=== PATIENT | female | born 1990 | race Hispanic/Latino ===

== ENCOUNTER 2018-02-23 11:02 | Emergency (ER) | payer BC ==
[2018-02-23 11:05] VITALS: BP 124/86; PULSE 93; RESP 17; TEMP 98.9; O2SAT 98; BMI 22.2
[2018-02-23] MEDS ORDERED: Sodium Chloride 0.9% 1,000 ML IV STA (11:19)
--- NOTE | 2018-02-23 11:24 | ED PDOC ---
HPI: Seizure Time Seen by Provider: 02/23/18 11:08 Chief Complaint (Nursing): Seizure Chief Complaint (Provider): Seizure Additional Complaint(s): Pt presents with friend who witnessed seizure 2 hours [employer] SUPERVIS[employer]. Friend states she was standing when seizure started, head hit furniture on way down. Pt states she took extra dose of Keppra because she felt different today. Admits to drinking excessive alcohol last PM, last seizure [facility] secondary to alcohol use. Past Medical History Reviewed: Nursing Documentation, Vital Signs Vital Signs: Last Vital Signs Temp 98.9 F 02/23/18 11:05 Pulse 93 H 02/23/18 11:05 Resp 17 02/23/18 11:05 BP 124/86 02/23/18 11:05 Pulse Ox 98 02/23/18 14:51 - Medical History PMH: Seizures - Family History Family History: States: Unknown Family Hx - Social History Current smoker - smoking cessation education provided: No - Home Medications Home Medications: Ambulatory Orders Medication Instructions Recorded traMADol [Ultram] 50 mg PO Q6 #16 tab 07/03/15 Acetaminophen with Codeine 1 tab PO Q6H PRN #10 tab 02/23/18 [Tylenol with Codeine No. 3 300 mg-30 mg] Amoxicillin/Clavulanate [Augmentin 1 tab PO BID #13 tab 02/23/18 875 MG-125 MG] - Allergies Allergies/Adverse Reactions: Allergies Allergy/AdvReac Type Severity Reaction Status Date / Time No Known Allergies Allergy Verified 01/14/17 11:51 Review of Systems Constitutional: Negative for: Fever, Chills Eyes: Negative for: Vision Change ENT: Positive for: Nose Pain Cardiovascular: Negative for: Chest Pain, Palpitations Respiratory: Negative for: Cough, Shortness of Breath Gastrointestinal: Negative for: Nausea, Vomiting, Abdominal Pain, Diarrhea Genitourinary Female: Negative for: Dysuria, Hematuria Skin: Negative for: Rash, Lesions Neurological: Positive for: Seizures. Negative for: Weakness, Numbness, Change in Speech, Confusion, Altered Mental Status, Headache Physical Exam - Reviewed Nursing Documentation Reviewed: Yes Vital Signs Reviewed: Yes - Physical Exam Appears: Positive for: Well, No Acute Distress Head Exam: Positive for: ATRAUMATIC, NORMAL INSPECTION Skin: Positive for: Normal Color, Warm, Dry Eye Exam: Positive for: Normal appearance, EOMI, PERRL ENT: Positive for: Other (0.25 superficial lacerations X 2 nasal bridge, + edema , + ecchymosis, + deformity) Neck: Positive for: Normal, Painless ROM, Supple Cardiovascular/Chest: Positive for: Regular Rate, Rhythm Respiratory: Positive for: Normal Breath Sounds. Negative for: Rales, Rhonchi, Wheezing Gastrointestinal/Abdominal: Positive for: Normal Exam Back: Positive for: Normal Inspection Extremity: Positive for: Normal ROM Neurologic/Psych: Positive for: Alert, resource manager forester II-XII, Oriented. Negative for: Motor/Sensory Deficits, Aphasia, Facial Droop Procedures - Laceration/Wound Repair Nasal bridge laceration Wound's Depth, Shape: superficial Wound Explored: clean Wound Repaired With: Skin adhesive Wound Complexity: Simple - Laboratory Results Result Diagrams: 02/23/18 11:34 02/23/18 11:34 - ECG O2 Sat by Pulse Oximetry: 98 Medical Decision Making Medical Decision Makin yo female with recurrent seizure and facial injury. - labs - CT head - CT facial bones Accession No. : [id number] Patient Name / ID : RAJENDRA HOOKER / [id number] Exam Date : 02/23/2018 12:05:38 ( Approved ) Study Comment : Sex / Age : F / 27Y Creator : Matt Curiel MD Dictator : Matt Curiel MD Lapel Stitcher : Supervisor Jewelry Department : Matt Curiel MD Approver2 : Report Date : 02/23/2018 12:33:38 My Comment : PROCEDURE: CT HEAD WITHOUT CONTRAST. HISTORY: Seizure, head injury COMPARISON: None available. TECHNIQUE: Axial computed tomography images were obtained through the head/brain without intravenous contrast. Radiation dose: Total exam DLP = mGy-cm. This CT exam was performed using one or more of the following dose reduction techniques: Automated exposure control, adjustment of the mA and/or kV according to patient size, and/or use of iterative reconstruction technique. FINDINGS: HEMORRHAGE: No intracranial hemorrhage. BRAIN: No mass effect or edema. No atrophy or chronic microvascular ischemic changes. VENTRICLES: Unremarkable. No hydrocephalus. CALVARIUM: Unremarkable. PARANASAL SINUSES: Unremarkable as visualized. No significant inflammatory changes. MASTOID AIR CELLS: Unremarkable as visualized. No inflammatory changes. OTHER FINDINGS: None. IMPRESSION: Normal CT of the Head. Accession No. : [id number] Patient Name / ID : RAJENDRA HOOKER / [id number] Exam Date : 02/23/2018 12:09:40 ( Approved ) Study Comment : Sex / Age : F / 27Y Creator : Matt Curiel MD Dictator : Matt Curiel MD Lapel Stitcher : Supervisor Jewelry Department : Matt Curiel MD Approver2 : Report Date : 02/23/2018 12:35:15 My Comment : PROCEDURE: CT MAXILLOFACIAL BONES WITHOUT CONTRAST HISTORY: Facial injury COMPARISON: None TECHNIQUE: Contiguous axial CT images of the maxillofacial bones were obtained. Coronal and sagittal reformats were generated. Radiation dose: Total exam DLP = mGy-cm. This CT exam was performed using one or more of the following dose reduction techniques: Automated exposure control, adjustment of the mA and/or kV according to patient size, and/or use of iterative reconstruction technique. FINDINGS: NASAL BONES: Comminuted nasal bone fracture. Severe nasal septum deviation to the right. ORBITS: Unremarkable. PARANASAL SINUSES/ MASTOIDS: Clear. MAXILLA: Unremarkable. MANDIBLE/ TEMPOROMANDIBULAR JOINTS: Unremarkable. SKULL BASE: Unremarkable. TEMPORAL BONES: Middle ears and mastoid grossly unremarkable. OTHER FINDINGS: None. IMPRESSION: Comminuted nasal bone fracture. Severe nasal septum deviation to the right. Disposition - Clinical Impression Clinical Impression: Recurrent seizures, Nasal bone fracture - Disposition Referrals: [facility] [Outside] Disposition Time: 14:58 Condition: IMPROVED Additional Instructions: FOLLOW-UP WITH YOUR NEUROLOGIST WITHIN 2 DAYS FOR REEVALUATION. Prescriptions: Acetaminophen with Codeine [Tylenol with Codeine No. 3 300 mg-30 mg] 1 tab PO Q6H PRN #10 tab PRN Reason: Pain, Severe (8-10) Amoxicillin/Clavulanate [Augmentin 875 MG-125 MG] 1 tab PO BID #13 tab Instructions: Skull and Facial Fractures Forms: [employer] (Japanese)
[2018-02-23] MEDS ORDERED: Liquid Adhesive TOP STA (11:41)
[2018-02-23 11:47] LABS: BASO % 0.2 % (0.0-2.0); EOS # 0.1 K/uL (0.0-0.7); EOS % 0.8 % (0.0-4.0); HEMOGLOBIN 14.4 g/dL (12.0-16.0); LYMPH # 1.2 K/uL (1.0-4.3); LYMPH % 12.4 % (20.0-40.0); MEAN CORPUSCULAR HEMOGLOBIN 29.3 pg (27.0-31.0); MEAN CORPUSCULAR HGB CONC 32.9 g/dL (33.0-37.0); MONO # 0.4 K/uL (0.0-0.8); MONO % 3.7 % (0.0-10.0); NEUT % 82.9 % (50.0-75.0); RBC 4.91 Mil/uL (3.80-5.20); RED CELL DISTRIBUTION WIDTH 13.8 % (11.5-14.5); WHITE BLOOD COUNT 9.7 K/uL (4.8-10.8)
[2018-02-23 12:05] LABS: ALB/GLOB RATIO 1.4 (1.0-2.1); ALBUMIN 4.6 g/dL (3.5-5.0); ALT/SGPT 38 U/L (9-52); AST/SGOT 36 U/L (14-36); BLOOD UREA NITROGEN 16 mg/dl (7-17); CALCIUM 9.8 mg/dL (8.4-10.2); GFR AFRICAN-AMERICAN > 60; GFR NON-AFRICAN AMERICAN > 60
--- NOTE | 2018-02-23 12:35 | CT ---
PROCEDURE: CT HEAD WITHOUT CONTRAST. HISTORY: Seizure, head injury COMPARISON: None available. TECHNIQUE: Axial computed tomography images were obtained through the head/brain without intravenous contrast. Radiation dose: Total exam DLP = mGy-cm. This CT exam was performed using one or more of the following dose reduction techniques: Automated exposure control, adjustment of the mA and/or kV according to patient size, and/or use of iterative reconstruction technique. FINDINGS: HEMORRHAGE: No intracranial hemorrhage. BRAIN: No mass effect or edema. No atrophy or chronic microvascular ischemic changes. VENTRICLES: Unremarkable. No hydrocephalus. CALVARIUM: Unremarkable. PARANASAL SINUSES: Unremarkable as visualized. No significant inflammatory changes. MASTOID AIR CELLS: Unremarkable as visualized. No inflammatory changes. OTHER FINDINGS: None. IMPRESSION: Normal CT of the Head.
--- NOTE | 2018-02-23 12:37 | CT ---
PROCEDURE: CT MAXILLOFACIAL BONES WITHOUT CONTRAST HISTORY: Facial injury COMPARISON: None TECHNIQUE: Contiguous axial CT images of the maxillofacial bones were obtained. Coronal and sagittal reformats were generated. Radiation dose: Total exam DLP = mGy-cm. This CT exam was performed using one or more of the following dose reduction techniques: Automated exposure control, adjustment of the mA and/or kV according to patient size, and/or use of iterative reconstruction technique. FINDINGS: NASAL BONES: Comminuted nasal bone fracture. Severe nasal septum deviation to the right. ORBITS: Unremarkable. PARANASAL SINUSES/ MASTOIDS: Clear. MAXILLA: Unremarkable. MANDIBLE/ TEMPOROMANDIBULAR JOINTS: Unremarkable. SKULL BASE: Unremarkable. TEMPORAL BONES: Middle ears and mastoid grossly unremarkable. OTHER FINDINGS: None. IMPRESSION: Comminuted nasal bone fracture. Severe nasal septum deviation to the right.
[2018-02-23 12:39] LABS: SQUAMOUS EPITHIAL < 1 /hpf (0-5); URINE BILIRUBIN NEGATIVE (NEGATIVE); URINE BLOOD SMALL (NEGATIVE); URINE CLARITY CLEAR (Clear); URINE COLOR YELLOW (YELLOW); URINE GLUCOSE (UA) NEG (Normal); URINE LEUKOCYTE ESTERASE NEG Leu/uL (Negative); URINE PROTEIN NEGATIVE (NEGATIVE); URINE UROBILINOGEN 0.2-1.0 mg/dL (0.2-1.0)
[2018-02-23] MEDS ORDERED: Amoxicillin-Clav 875-125 mg Tab PO STA (14:52)
[2018-02-23] MEDS ORDERED: Amoxicillin-Clav 875-125 mg Tab PO ONE (15:01)
== END 2018-02-23 15:16 | disposition home or self-care (01) ==
LOC: MERGE 11:02 → H.ER 11:02
DX: G40.909 Epilepsy, unspecified, not intractable, without status epilepticus (principal); S02.2XXA Fracture of nasal bones, initial encounter for closed fracture; W19.XXXA Unspecified fall, initial encounter; Y92.89 Other specified places as the place of occurrence of the external cause; J34.2 Deviated nasal septum
CPT/HCPCS: 70450; 70486; 80053; 80299; 81003; 81025; 85025; 99285; G0480; J7040